=== PATIENT | male | born 1950 | race Caucasian/White ===

== ENCOUNTER 2021-01-28 08:00 | Outpatient (CLI) | payer OTHER ==
[~2021-01-28 08:00] MED LIST: ADULT ASPIRIN81 MG; CATAFLAM50 MG; LOSARTAN POTASS25 MG
== END 2021-01-28 08:30 | disposition home or self-care (01) ==
LOC: PPH VACUNA 08:00
PROVIDERS: ATTEND Emergency Medicine Pediatric Emergency Medicine
DX: Z23 Encounter for immunization (principal)

== ENCOUNTER 2021-08-26 08:00 | Outpatient (CLI) | payer OTHER | END 2021-08-26 08:30 | disposition home or self-care (01) | LOC: PPH VACUNA 08:00 | PROVIDERS: ATTEND Emergency Medicine Pediatric Emergency Medicine | DX: Z23 Encounter for immunization (principal) ==